=== PATIENT | female | born 1945 | race American Indian/Alaskan Native ===

== ENCOUNTER 2020-01-27 12:19 | Emergency (ER) | payer OTHER ==
[2020-01-27 13:30] VITALS: BP 134/74
--- NOTE | 2020-01-27 13:34 | Emergency Department Report ---
ED ENT HPI - General Chief complaint: Dental/Oral Stated complaint: MOUTH PAIN/JAW PAIN Time Seen by Provider: 01/27/20 13:27 Source: patient Mode of arrival: Ambulatory Limitations: No Limitations - History of Present Illness Initial comments: 74 yo AA F pt presents with complaints of lower dental pain x 4 days. Rates her pain as a 9/10 in severity and states pain improves with Goody's powder. Does not currently have a dentist. Denies hx of DM or HIV. admits to swelling. Denies difficulty with swallowing or opening jaw -: Sudden Severity scale (0 -10): 9 Consistency: constant Worsens with: none - Related Data Previous Rx's Medication Instructions Recorded Last Taken Type Clindamycin [Clindamycin CAP] 300 mg PO Q6H 10 Days #40 capsule 01/27/20 Unknown Rx Allergies Allergy/AdvReac Type Severity Reaction Status Date / Time No Known Allergies Allergy Unverified 01/27/20 12:43 ED Dental HPI - General Chief complaint: Dental/Oral Stated complaint: MOUTH PAIN/JAW PAIN Time Seen by Provider: 01/27/20 13:27 Source: patient Mode of arrival: Ambulatory Limitations: No Limitations - History of Present Illness MD complaint: tooth pain - Related Data Previous Rx's Medication Instructions Recorded Last Taken Type Clindamycin [Clindamycin CAP] 300 mg PO Q6H 10 Days #40 capsule 01/27/20 Unknown Rx Allergies Allergy/AdvReac Type Severity Reaction Status Date / Time No Known Allergies Allergy Unverified 01/27/20 12:43 ED Review of Systems ROS: Stated complaint: MOUTH PAIN/JAW PAIN Other details as noted in HPI Constitutional: denies: chills, diaphoresis, fever, malaise ENT: dental pain. denies: ear pain, throat pain Respiratory: denies: orthopnea, shortness of breath Skin: denies: rash, lesions Neurological: denies: headache Hematological/Lymphatic: denies: easy bleeding, swollen glands ED Past Medical Hx - Past Medical History Previous Medical History?: No - Surgical History Past Surgical History?: No - Medications Home Medications: Home Medications Medication Instructions Recorded Confirmed Last Taken Type Clindamycin [Clindamycin CAP] 300 mg PO Q6H 10 Days #40 capsule 01/27/20 Unknown Rx ED Physical Exam - General Limitations: No Limitations General appearance: alert, in no apparent distress - Head Head exam: Present: atraumatic, normocephalic - Eye Eye exam: Present: normal appearance - Expanded ENT Exam Expanded Mouth exam: Present: tongue normal. Absent: drooling, trismus, muffled voice Teeth exam: Present: dental caries (diffuse, worse in left lower canine ), other (mild swelling of lower face noted without erythema or obvious abscess) - Neck Neck exam: Present: normal inspection, full ROM - Respiratory Respiratory exam: Absent: respiratory distress - Cardiovascular Cardiovascular Exam: Present: regular rate - Neurological Exam Neurological exam: Present: alert, oriented X3 - Psychiatric Psychiatric exam: Present: normal affect, normal mood ED Medical Decision Making - Medical Decision Making Pt here for 4 days of a tooth ache. +mild facial swelling noted on exam. No trismus , hot potato voice, or drooling noted on exam. Pt is afebrile and non tachycardic. She is well appearing and stable for d/c home. Pt provided with community resources for dental specialists. Good Rx coupon given for clindamycin. Discussed strict return precautions in detail with pt who verbalizes understanding. Critical care attestation.: If time is entered above; I have spent that time in minutes in the direct care of this critically ill patient, excluding procedure time. ED Disposition Clinical Impression: Dental infection Disposition: DC-01 TO HOME OR SELFCARE Is pt being admited?: No Condition: Stable Instructions: Dental Caries (ED), Dental Abscess (ED) Prescriptions: Clindamycin [Clindamycin CAP] 300 mg PO Q6H 10 Days #40 capsule
== END 2020-01-27 13:40 | disposition home or self-care (01) ==
LOC: ED 12:19
DX: K04.7 Periapical abscess without sinus (principal); Z79.899 Other long term (current) drug therapy
CPT/HCPCS: 99282